=== PATIENT | male | born 1995 | race Caucasian/White ===

== ENCOUNTER 2022-06-07 20:01 | Inpatient (IN) | payer MEDICAID ==
[~2022-06-07] VITALS: Ht 172.7 cm; Wt 83.9 kg
[2022-06-07 20:10] VITALS: BP_SYST 102
[2022-06-07] MEDS ORDERED: NACL 0.9% 2,000 ML IV ONE (20:15)
[2022-06-07] MEDS ORDERED: NALOXONE HCL 2 MG/2 ML SYR IVP ONE (20:15)
[2022-06-07] MEDS ORDERED: MIDAZOLAM HCL 5 MG/5 ML VIAL ONE (20:33)
[2022-06-07] MEDS ORDERED: PROPOFOL DRIP 100 ML IV ONE ×2 (20:34→22:15)
[2022-06-07] MEDS ORDERED: NOREPINEPHRINE 4 MG/4 ML VIAL IV ONE (20:50)
[2022-06-07] MEDS ORDERED: NOREPINEPHRINE BITARTRATE 4 MG in NS 246 ML IV ONE (21:00)
[2022-06-07] MEDS ORDERED: LORazepam 2 MG/ML VIAL IVP ONE ×2 (21:00→22:30)
[2022-06-07 21:21] LABS: BILIRUBIN,URINE 1+ (NEGATIVE); BLOOD, URINE NEGATIVE (NEGATIVE); GLUCOSE,URINE NEGATIVE (NEGATIVE); KETONES,URINE TRACE (NEGATIVE); LEUKOCYTE ESTERASE ,URINE NEGATIVE (NEGATIVE); NITRITE, URINE NEGATIVE (NEGATIVE); PH,URINE 6.5 (5.0-8.0); PROTEIN URINE 2+ (NEGATIVE)
[2022-06-07] MEDS ORDERED: ACETAMINOPHEN 325 MG SUPP.RECT RC ONE (21:34)
[2022-06-07 21:44] LABS: BASOPHILS % (AUTO) 0.3 % (0.0-2.0); EOSINOPHILS % (AUTO) 0.1 % (0.0-4.0); HEMATOCRIT 39.2 % (36-54); LYMPHOCYTES % (AUTO) 19.7 % (20.5-51.5); MEAN CORPUSCULAR VOLUME 85 fL (79.0-98.0); MONOCYTES # (AUTO) 0.7 K/uL (0.0-1.0); NEUTROPHILS # (AUTO) 7.6 K/uL (1.8-7.7); NEUTROPHILS % (AUTO) 72.9 % (40.0-70.0); PLATELET COUNT (AUTO) 324 K/uL (130-430); RED BLOOD CELL COUNT(AUTO) 4.61 MIL/uL (4.2-6.2); RED CELL DISTRIBUTION WIDTH 13.7 % (9.0-15.0); WHITE BLOOD COUNT (AUTO) 10.4 K/uL (4.8-10.8)
[2022-06-07 21:45] LABS: ANION GAP 13 (5-15); CALCIUM 7.9 mg/dL (8.4-11.0); CHLORIDE 98 mmol/L (98-107); CREATININE 2.04 mg/dL (0.55-1.30); GLUCOSE 156 mg/dL (70-99); UREA NITROGEN, BLOOD 16 mg/dL (8-21)
[2022-06-07 21:50] LABS: INR 1.2 (0.80-1.20); PROTHROMBIN TIME 11.6 SECS (9.5-12.5)
[2022-06-07 21:53] LABS: ALANINE AMINOTRANSFERASE 41 U/L (12-78); ALBUMIN 3.2 g/dL (3.4-4.8); ASPARTATE AMINOTRANSFERASE 63 U/L (10-37); C-REACTIVE PROTEIN QUANT 1.8 mg/dL (0-0.5); LACTATE DEHYDROGENASE 295 U/L (85-227); TOTAL BILIRUBIN 2.3 mg/dL (0.0-1.0)
[2022-06-07 21:55] LABS: BARBITURATE, URINE NEGATIVE (NEG <=200); BENZODIAZEPINE, URINE NEGATIVE (NEG <=150); CANNABINOID, URINE NEGATIVE (NEG <=50); COCAINE, URINE NEGATIVE (NEG <=150); METHAMPHETAMINES SCREEN,URINE POSITIVE (NEG <=500); OPIATE, URINE NEGATIVE (NEG <=100); PHENCYCLIDINE SCREEN,URINE NEGATIVE (NEG <=25); UR TRICYCLIC ANTIDEPRESSANTS NEGATIVE (NEG <=300); URINE AMPHETAMINE POSITIVE (NEG <=500); URINE METHADONE NEGATIVE (NEG <=200); URINE OXYCODONE SCREEN NEGATIVE (NEG <=100); URINE PROPOXYPHENE SCREEN NEGATIVE (NEG <=300)
[2022-06-07 22:03] LABS: GFR AFRICAN AMERICAN 51 mL/min (>90)
[2022-06-07 22:05] LABS: POTASSIUM 2.8 mmol/L (3.5-5.1)
[2022-06-07] MEDS ORDERED: ETOMIDATE 20 MG/ 10 ML VIAL (AMIDATE) IVP ONE (22:15)
[2022-06-07] MEDS ORDERED: MIDAZOLAM HCL 5 MG/5 ML VIAL IVP ONE (22:15)
[2022-06-07] MEDS ORDERED: NACL 0.9% 1,000 ML IV ONE ×2 (22:15→22:30)
[2022-06-07 22:41] LABS: CKMB RELATIVE INDEX 0.1 (0.0-2.9); CREATINE KINASE MB 1.3 ng/mL (0-3.6)
[2022-06-07 22:53] LABS: CLARITY/URINE HAZY (CLEAR); COLOR,URINE AMBER (YELLOW)
[2022-06-07 23:09] LABS: BACTERIA,URINE MODERATE /HPF (None Seen); RBC,URINE 0-3 /HPF (0-3)
[2022-06-07] MEDS ORDERED: KCL 20 mEq in 100 mL (PREMIX) 100 ML IV ONE (23:15)
[2022-06-07] MEDS ORDERED: ED NON STOCK ORDER 1 EA MISC IV ONE (23:15)
[2022-06-07 23:43] LABS: MUCUS,URINE None Seen /LPF (None Seen)
[2022-06-08] VITALS (30 sets, daily range): BP systolic 104–155
[2022-06-08] MEDS ORDERED: NOREPINEPHRINE BITARTRATE 4 MG in NS 246 ML IV PRN (00:50)
[2022-06-08] MEDS ORDERED: NOREPINEPHRINE 4 MG/4 ML VIAL IV ONE ×3 (01:59→06:39)
[2022-06-08] MEDS ORDERED: PROPOFOL DRIP 100 ML IV ONE (01:59)
[2022-06-08] MEDS: NACL 0.9% 1,000 ML IV SCH ×3 (06:42→20:00)
[2022-06-08 07:29] LABS: HEMATOCRIT 37.6 % (36-54); LYMPHOCYTES # (AUTO) 1.6 K/uL (1.0-5.5); LYMPHOCYTES % (AUTO) 13.5 % (20.5-51.5); MEAN CORPUSCULAR VOLUME 87 fL (79.0-98.0); MONOCYTES # (AUTO) 1.5 K/uL (0.0-1.0); MONOCYTES % (AUTO) 12.8 % (1.7-9.3); NEUTROPHILS # (AUTO) 8.7 K/uL (1.8-7.7); NEUTROPHILS % (AUTO) 73.7 % (40.0-70.0); PLATELET COUNT (AUTO) 151 K/uL (130-430); RED CELL DISTRIBUTION WIDTH 13.4 % (9.0-15.0); WHITE BLOOD COUNT (AUTO) 11.8 K/uL (4.8-10.8)
[2022-06-08 07:45] LABS: CALCIUM 7.2 mg/dL (8.4-11.0); CREATININE 1.38 mg/dL (0.55-1.30); POTASSIUM 3.6 mmol/L (3.5-5.1); TOTAL BILIRUBIN 2.9 mg/dL (0.0-1.0)
[2022-06-08] MEDS ORDERED: ONDANSETRON HCL 4 MG/2 ML VIAL IVP PRN (07:45)
[2022-06-08] MEDS ORDERED: MAGNESIUM SULFATE 50 ML IV PRN (07:45)
[2022-06-08] MEDS ORDERED: LORazepam 2 MG/ML VIAL IVP PRN (07:45)
[2022-06-08] MEDS ORDERED: ZOLPIDEM TARTRATE 5 MG TABLET PO PRN (07:45)
[2022-06-08] MEDS ORDERED: MORPHINE 2 MG/ML INJ. SYRINGE IVP PRN ×2 (07:45)
[2022-06-08] MEDS ORDERED: NALOXONE HCL 0.4 MG/ML AMP (NARCAN) IVP PRN ×3 (07:45→15:30)
[2022-06-08] MEDS ORDERED: DOCUSATE SODIUM 100 MG CAPSULE PO PRN (07:45)
[2022-06-08] MEDS ORDERED: ACETAMINOPHEN 325 MG TABLET PO PRN (07:45)
[2022-06-08] MEDS ORDERED: MUPIROCIN 2% TOPICAL OINTMENT 22 GM NS PRN (07:45)
[2022-06-08] MEDS ORDERED: PANTOPRAZOLE SODIUM 40 MG/VIAL (PROTONIX) IVP ONE ×2 (08:30→09:00)
[2022-06-08 08:49] LABS: HEMOGLOBIN 13.7 g/dL (14.0-18.0); MEAN CORPUSCULAR HEMOGLOBIN 30 pg (27-31); MEAN CORPUSCULAR HGB CONC 34 % (32-36)
[2022-06-08] MEDS ORDERED: NACL 0.9% 1,000 ML IV ONE (09:15)
[2022-06-08] MEDS ORDERED: PIPERACILLIN/TAZO 3.375/DEX-IS 50 ML IV SCH (09:30)
[2022-06-08] MEDS: PIPERACILLIN IV SCH ×3 (09:31→21:11)
[2022-06-08] MEDS: TAZO IV SCH ×3 (09:31→21:11)
[2022-06-08] MEDS: DEX IS IV SCH ×3 (09:31→21:11)
[2022-06-08] MEDS: PANTOPRAZOLE SODIUM 40 MG/VIAL (PROTONIX) IVP SCH (09:31)
[2022-06-08] MEDS ORDERED: ATROPINE SULFATE 0.4 MG/ML VIAL IVP ONE (11:00)
[2022-06-08 11:16] LABS: ACETAMINOPHEN < 1 ug/mL (1-30)
[2022-06-08] MEDS: PROPOFOL DRIP 100 ML IV PRN ×2 (12:20→23:30)
[2022-06-08 12:43] LABS: HEMOGLOBIN 12.8 g/dL (14.0-18.0); MEAN CORPUSCULAR HEMOGLOBIN 29 pg (27-31); MEAN CORPUSCULAR HGB CONC 34 % (32-36)
[2022-06-08] MEDS: LORazepam 1 MG TABLET PO PRN (15:27)
[2022-06-08] MEDS ORDERED: MORPHINE SULFATE IN 0.9 % NACL 100 ML IV PRN (15:30)
[2022-06-09] VITALS (26 sets, daily range): BP systolic 99–165
[2022-06-09] MEDS: PIPERACILLIN IV SCH ×4 (03:17→21:31)
[2022-06-09] MEDS: TAZO IV SCH ×4 (03:17→21:31)
[2022-06-09] MEDS: NACL 0.9% 1,000 ML IV SCH ×2 (03:17→15:08)
[2022-06-09] MEDS: DEX IS IV SCH ×4 (03:17→21:31)
[2022-06-09] MEDS: NOREPINEPHRINE BITARTRATE 8 MG in NS 242 ML IV PRN (03:42)
[2022-06-09] MEDS: PROPOFOL DRIP 100 ML IV PRN (04:33)
[2022-06-09 07:30] LABS: BASOPHILS % (AUTO) 0.3 % (0.0-2.0); EOSINOPHILS % (AUTO) 0.4 % (0.0-4.0); HEMATOCRIT 35.3 % (36-54); LYMPHOCYTES # (AUTO) 2.2 K/uL (1.0-5.5); LYMPHOCYTES % (AUTO) 19.9 % (20.5-51.5); MEAN CORPUSCULAR VOLUME 86 fL (79.0-98.0); MONOCYTES # (AUTO) 1.1 K/uL (0.0-1.0); MONOCYTES % (AUTO) 10.2 % (1.7-9.3); NEUTROPHILS # (AUTO) 7.6 K/uL (1.8-7.7); NEUTROPHILS % (AUTO) 69.2 % (40.0-70.0); PLATELET COUNT (AUTO) 112 K/uL (130-430); RED CELL DISTRIBUTION WIDTH 13.7 % (9.0-15.0)
[2022-06-09 07:37] LABS: CREATININE 1.16 mg/dL (0.55-1.30); POTASSIUM 3.6 mmol/L (3.5-5.1)
[2022-06-09 07:59] LABS: ALBUMIN 2.4 g/dL (3.4-4.8); TOTAL BILIRUBIN 2.8 mg/dL (0.0-1.0)
[2022-06-09] MEDS: PANTOPRAZOLE SODIUM 40 MG/VIAL (PROTONIX) IVP SCH ×2 (08:32→21:31)
[2022-06-09] MEDS ORDERED: PANTOPRAZOLE SODIUM 40 MG/VIAL (PROTONIX) IVP SCH (09:00)
[2022-06-09] MEDS ORDERED: NS 500 ML IV ONE ×2 (09:45→10:00)
[2022-06-09 14:06] LABS: HEPATITIS A AB, IgM Negative (Negative); HEPATITIS B CORE AB, IgM Negative (Negative); HEPATITIS B SURFACE AG Negative (Negative)
[2022-06-09] MEDS ORDERED: BENZOCAINE/MENTHOL 1 EACH LOZENGE MM PRN (15:15)
[2022-06-09] MEDS: LORazepam 1 MG TABLET PO PRN (21:30)
[2022-06-10] VITALS (19 sets, daily range): BP systolic 88–133
[2022-06-10] MEDS: DEX IS IV SCH ×4 (02:25→21:07)
[2022-06-10] MEDS: TAZO IV SCH ×4 (02:25→21:07)
[2022-06-10] MEDS: NACL 0.9% 1,000 ML IV SCH ×4 (02:25→23:00)
[2022-06-10] MEDS: PIPERACILLIN IV SCH ×4 (02:25→21:07)
[2022-06-10] MEDS ORDERED: NOREPINEPHRINE 4 MG/4 ML VIAL IV ONE (06:39)
[2022-06-10 06:58] LABS: BASOPHILS % (AUTO) 0.2 % (0.0-2.0); EOSINOPHILS % (AUTO) 0.6 % (0.0-4.0); LYMPHOCYTES # (AUTO) 1.6 K/uL (1.0-5.5); LYMPHOCYTES % (AUTO) 21.1 % (20.5-51.5); MEAN CORPUSCULAR VOLUME 86 fL (79.0-98.0); MONOCYTES # (AUTO) 0.8 K/uL (0.0-1.0); MONOCYTES % (AUTO) 9.9 % (1.7-9.3); NEUTROPHILS # (AUTO) 5.2 K/uL (1.8-7.7); NEUTROPHILS % (AUTO) 68.2 % (40.0-70.0); PLATELET COUNT (AUTO) 143 K/uL (130-430); RED BLOOD CELL COUNT(AUTO) 4.19 MIL/uL (4.2-6.2); RED CELL DISTRIBUTION WIDTH 13.4 % (9.0-15.0); WHITE BLOOD COUNT (AUTO) 7.6 K/uL (4.8-10.8)
[2022-06-10] MEDS: NOREPINEPHRINE BITARTRATE 8 MG in NS 242 ML IV PRN (07:01)
[2022-06-10 07:06] LABS: INR 1.1 (0.80-1.20); PROTHROMBIN TIME 10.7 SECS (9.5-12.5)
[2022-06-10 07:16] LABS: ALBUMIN 2.6 g/dL (3.4-4.8); CALCIUM 7.8 mg/dL (8.4-11.0); CREATININE 1.11 mg/dL (0.55-1.30); TOTAL BILIRUBIN 2.3 mg/dL (0.0-1.0)
[2022-06-10] MEDS: PANTOPRAZOLE SODIUM 40 MG/VIAL (PROTONIX) IVP SCH ×2 (07:50→21:07)
[2022-06-10] MEDS: POTASSIUM CHLORIDE 20 MEQ TAB.PRT.SR PO PRN (08:21)
[2022-06-10] MEDS ORDERED: NACL 0.9% 1,000 ML IV ONE (10:00)
[2022-06-10] MEDS ORDERED: PIPERACILLIN/TAZOBACTAM 3.375 GM/VIAL (ZOSYN) IV ONE (20:25)
[2022-06-11] MEDS: PIPERACILLIN IV SCH ×2 (04:24→11:39)
[2022-06-11] MEDS: DEX IS IV SCH ×2 (04:24→11:39)
[2022-06-11] MEDS: TAZO IV SCH ×2 (04:24→11:39)
[2022-06-11 07:13] LABS: EOSINOPHILS # (AUTO) 0.1 K/uL (0.0-0.4); LYMPHOCYTES # (AUTO) 1.7 K/uL (1.0-5.5); MEAN CORPUSCULAR VOLUME 86 fL (79.0-98.0); WHITE BLOOD COUNT (AUTO) 5.8 K/uL (4.8-10.8)
[2022-06-11 07:43] LABS: BASOPHILS % (AUTO) 0.8 % (0.0-2.0); EOSINOPHILS % (AUTO) 2.1 % (0.0-4.0); HEMATOCRIT 36.8 % (36-54); LYMPHOCYTES % (AUTO) 29.5 % (20.5-51.5); MONOCYTES # (AUTO) 0.7 K/uL (0.0-1.0); MONOCYTES % (AUTO) 12.9 % (1.7-9.3); NEUTROPHILS # (AUTO) 3.2 K/uL (1.8-7.7); NEUTROPHILS % (AUTO) 54.7 % (40.0-70.0); PLATELET COUNT (AUTO) 184 K/uL (130-430); RED BLOOD CELL COUNT(AUTO) 4.28 MIL/uL (4.2-6.2); RED CELL DISTRIBUTION WIDTH 13.6 % (9.0-15.0)
[2022-06-11 07:51] LABS: ALBUMIN 2.9 g/dL (3.4-4.8); CALCIUM 8.6 mg/dL (8.4-11.0); CREATININE 0.94 mg/dL (0.55-1.30); POTASSIUM 3.3 mmol/L (3.5-5.1); TOTAL BILIRUBIN 1.4 mg/dL (0.0-1.0)
[2022-06-11 08:00] VITALS: BP_SYST 126; BP_SYST 138
[2022-06-11] MEDS ORDERED: LEVO-62 PO (08:23)
[2022-06-11] MEDS: PANTOPRAZOLE SODIUM 40 MG/VIAL (PROTONIX) IVP SCH (09:30)
[2022-06-11] MEDS: POTASSIUM CHLORIDE 20 MEQ TAB.PRT.SR PO PRN (11:37)
[2022-06-11 11:41] VITALS: BP_SYST 116
[2022-06-11 12:20] VITALS: BP_SYST 116
[2022-06-11 13:30] VITALS: BP_SYST 116
== END 2022-06-11 15:00 | disposition home or self-care (01) | DRG 815 ==
LOC: SED 20:01 → EDBD 23:58 → SIC 23:58 → STU 06-10 22:49
PROVIDERS: ADMIT Family Medicine; ATTEND Family Medicine
PROC: 02HV33Z Insertion of Infusion Device into Superior Vena Cava, Percutaneous Approach (ICD-10-PCS; principal; 2022-06-07)
PROC: 5A1945Z Respiratory Ventilation, 24-96 Consecutive Hours (ICD-10-PCS; 2022-06-07)
PROC: B548ZZA Ultrasonography of Superior Vena Cava, Guidance (ICD-10-PCS; 2022-06-07)
PROC: 0BH17EZ Insertion of Endotracheal Airway into Trachea, Via Natural or Artificial Opening (ICD-10-PCS; 2022-06-07)
PROC: 05HM33Z Insertion of Infusion Device into Right Internal Jugular Vein, Percutaneous Approach (ICD-10-PCS; 2022-06-07)
DX: T67.01XA Heatstroke and sunstroke, initial encounter (principal); J96.00 Acute respiratory failure, unspecified whether with hypoxia or hypercapnia; N17.0 Acute kidney failure with tubular necrosis; G93.41 Metabolic encephalopathy; E44.1 Mild protein-calorie malnutrition; T43.621A Poisoning by amphetamines, accidental (unintentional), initial encounter; E86.0 Dehydration; Z20.822 Contact with and (suspected) exposure to COVID-19; E87.6 Hypokalemia; E83.51 Hypocalcemia; D64.9 Anemia, unspecified; E87.2 Acidosis; R74.01 Elevation of levels of liver transaminase levels; E87.1 Hypo-osmolality and hyponatremia; R77.8 Other specified abnormalities of plasma proteins; X30.XXXA Exposure to excessive natural heat, initial encounter; Y92.89 Other specified places as the place of occurrence of the external cause; Z68.28 Body mass index [BMI] 28.0-28.9, adult
CPT/HCPCS: 36415; 36600; 70450-TC; 71045; 76376; 76700-TC; 80048; 80053; 80074; 80307; 81000; 82550; 82553; 82803-TC; 83605; 83615; 83735; 83880; 84484; 85025; 85379; 85384; 85610-TC; 85730-TC; 86140; 87040; 87070-TC; 87081; 87086; 87205-TC; 92610-GN; 93005; 93306; 94002; 94003; 94640; 99291; 99292; C9113; G0378; G0480; G0481; J0461; J2060; J2250; J2270; J2405; J2543; J2704; J3480; J3490; J7050